=== PATIENT | female | born 1975 | race Caucasian/White ===

== ENCOUNTER 2024-05-09 17:09 | Emergency (ER) | payer OTHER, SELFPAY ==
[2024-05-09 17:26] VITALS: BP 140/88; PULSE 85; TEMP 36.9; O2SAT 97; BMI 37.8
--- NOTE | 2024-05-09 17:31 | CT_ITS ---
[address] [address] Patient Name: DIPAK DIAZ MRN: [id number] date: 1975 Sex: F Assigned Patient Location: ER Current Patient Location: Accession/Order Number: [id number] Exam Date: 05/09/2024 17:40 Report Date: 05/09/2024 18:30 At the request of: ROHINI MINOR Procedure: CT abdomen pelvis wo con EXAM: CT abdomen pelvis wo con HISTORY: Flank pain COMPARISON: None. TECHNIQUE: Axial CT imaging was performed through the abdomen and pelvis without intravenous contrast. Multiplanar reformats were performed. Dose reduction techniques were achieved by using automated exposure control and/or adjustment of mA and/or kV according to patient size and/or use of iterative reconstruction technique. FINDINGS: Lung bases: Lung bases are clear. No pleural effusion. GI upper: Small hiatal hernia. Liver: Normal size and contour. Gallbladder: No significant abnormality. No cholelithiasis. Biliary system: No intra or extrahepatic biliary ductal dilatation. Spleen: Normal size. Pancreas: Unremarkable. Adrenal glands: Normal adrenal glands. Kidneys/ureters: Normal contours. No hydronephrosis. There is a 0.3 cm stone in the distal left ureter. Vessels: No aneurysm. Lymph Nodes: No lymphadenopathy. Small bowel: No wall thickening or dilatation. Colon: No wall thickening or dilatation. Sigmoid diverticulosis without evidence of acute diverticulitis. Appendix: No findings of appendicitis. Peritoneal cavity: No free fluid or pneumoperitoneum. Lower : Unremarkable. Bones: No acute bony abnormality. Soft tissues: No acute finding. Additional findings: None. CT/CT abdomen pelvis wo con IMPRESSION: a 0.3 cm nonobstructing stone in the distal left ureter. Electronically authenticated by: DAR TAMAYO Date: 05/09/2024 18:30
[2024-05-09 17:47] LABS: Bilirubin Urine NEGATIVE (NEGATIVE); Blood Urine LARGE (NEGATIVE); Clarity Urine CLEAR (CLEAR); Color Urine LT. YELLOW (YELLOW); Glucose Urine UA NEGATIVE (NEGATIVE); Ketones Urine TRACE mg/dL (NEGATIVE); Leukocyte Esterase Urine MODERATE (NEGATIVE); Nitrite Urine NEGATIVE (NEGATIVE); Protein Urine TRACE mg/dL (NEG/TRACE); Specific Gravity Urine >=1.030 (1.005-1.025); Urobilinogen Urine 0.2 EU/dL (0.2-1.0); pH Urine 5.5 (5.0-9.0)
[2024-05-09 17:48] LABS: HCG Qualitative Urine* NEGATIVE (NEGATIVE); Internal Control Within Normal Limits
[2024-05-09 17:49] LABS: Urine Microscopic Indicated YES
[2024-05-09 17:53] LABS: Bacteria Urine MODERATE #/HPF (NONE SEEN); Cast Seen? SEEN #/LPF (NONE SEEN); Crystals Seen? None Seen #/HPF (None Seen); Hyaline Casts Urine FEW; Mucus Urine SMALL (NONE SEEN); RBC Urine 50-75 #/HPF (0-2); Squamous Epithelial Cell Urine FEW #/LPF (NONE/RARE); Urine Culture Indicated YES
[2024-05-09 18:04] LABS: Basophils Absolute Auto 0.1 10^3/uL (0.0-0.1); Basophils Percent Auto 0.6 % (0.2-2.0); Eosinophils Absolute Auto 0.3 10^3/uL (0.0-0.7); Eosinophils Percent Auto 3.6 % (0.9-7.0); Hematocrit 45.4 % (36.0-48.0); Hemoglobin 14.7 g/dL (12.0-16.0); Immature Granulocytes Abs Auto 0.03 10^3/uL (0.00-0.03); Immature Granulocytes Pct Auto 0.3 % (0.0-0.5); Lymphocytes Absolute Auto 2.1 10^3/uL (1.2-3.8); Lymphocytes Percent Auto 23.1 % (20.5-60.0); Mean Corpuscular HGB Conc 32.4 g/dL (29.9-35.2); Mean Corpuscular Hemoglobin 28.1 pg (26.7-34.0); Mean Corpuscular Volume 86.6 fL (81.0-99.0); Mean Platelet Volume 9.8 fL (9.5-13.5); Monocytes Absolute Auto 0.7 10^3/uL (0.3-0.8); Monocytes Percent Auto 7.5 % (1.7-12.0); Neutrophils Percent Auto 64.9 % (43.0-75.0); Platelet Count 294 10^3/uL (150-450); Red Blood Count 5.24 10^6/uL (4.20-5.40); Red Cell Distribution Width 13.7 % (11.0-15.0); White Blood Count 9.3 10^3/uL (4.0-11.0)
--- NOTE | 2024-05-09 18:12 | ED.FEMALEGU1 ---
HPI - Female Genitourinary General Chief complaint: Urogenital-Female Stated complaint: UTI Time Seen by Provider: 05/09/24 17:14 Source: patient Mode of arrival: walk-in Limitations: no limitations History of Present Illness HPI Narrative: Patient is a 49-year-old female who presents to the emergency department for flank pain and suprapubic discomfort with urinary symptoms for the last several days. She states over the weekend she developed intermittent left flank pain which has subsided completely at this time. She states this morning she noticed suprapubic discomfort and burning with urination. She has had urinary tract infections in the past but has never had flank pain, no history of kidney stones or kidney issues. She denies fevers or vomiting. Pain is well-controlled at this time. No medications prior to arrival. Related Data Home Medications ?Medication ?Instructions ?Recorded ?Confirmed letrozole 2.5 mg tablet 2.5 mg PO DAILY 05/09/24 05/09/24 levothyroxine 50 mcg tablet 50 mcg PO DAILY 05/09/24 05/09/24 Previous Rx's ?Medication ?Instructions ?Recorded ciprofloxacin HCl 500 mg tablet 500 mg PO Q12H #14 tabs 05/09/24 ketorolac 10 mg tablet 10 mg PO TID PRN pain #10 tabs 05/09/24 ondansetron 4 mg disintegrating 4 mg PO Q6H PRN nausea and 05/09/24 tablet vomiting #12 tabs oxycodone-acetaminophen 5 mg-325 1 tab PO Q6H PRN pain 3 days #12 05/09/24 mg tablet (Percocet) tabs phenazopyridine 200 mg tablet 200 mg PO Q8H 2 days #6 tabs 05/09/24 (Pyridium) tamsulosin 0.4 mg capsule (Flomax) 0.4 mg PO DAILY #7 caps 05/09/24 Allergies Allergy/AdvReac Type Severity Reaction Status Date / Time No Known Drug Allergies Allergy Verified 05/09/24 17:25 Review of Systems ROS Constitutional Denies: fever or chills Ears, nose, mouth, and throat Denies: throat pain or nasal congestion Respiratory Denies: shortness of breath Gastrointestinal Reports: abdominal pain; Denies: nausea or vomiting Genitourinary Reports: painful urination, urinary frequency and pelvic pain Musculoskeletal Reports: back pain; Denies: neck pain Integumentary/Breast Denies: rash Neurological Denies: headache Hematologic/Lymphatic Denies: easy bruising or easy bleeding Exam Narrative Exam Narrative: Gen.: Awake, alert, in no distress Head: Normocephalic, atraumatic ENT: Moist mucous membranes Respiratory: No respiratory distress Gastrointestinal: Abdomen is soft, nondistended and nontender to palpation Extremities: Moves extremities equally Psych: Normal mood and affect Neuro: No focal neuro deficit Skin: Warm, dry, intact Constitutional Vital Signs, click to edit/add: Last Vital Signs Temp 98.4 F 05/09/24 17:26 Pulse 85 05/09/24 17:26 Resp 18 05/09/24 17:26 BP 140/88 05/09/24 17:26 Pulse Ox 97 05/09/24 17:26 O2 Del Method Room Air 05/09/24 17:26 Course Vital Signs Vital signs: Vital Signs Temperature 98.4 F 05/09/24 17:26 Pulse Rate 85 05/09/24 17:26 Respiratory Rate 18 05/09/24 17:26 Blood Pressure 140/88 05/09/24 17:26 Pulse Oximetry 97 05/09/24 17:26 Oxygen Delivery Method Room Air 05/09/24 17:26 Temperature 98.4 F 05/09/24 17:26 Pulse Rate 85 05/09/24 17:26 Respiratory Rate 18 05/09/24 17:26 Blood Pressure 140/88 05/09/24 17:26 Pulse Oximetry 97 05/09/24 17:26 Oxygen Delivery Method Room Air 05/09/24 17:26 MDM - Female Genitourinary MDM Narrative Medical decision making narrative: Patient declined pain medication while in the ER, she is hemodynamically stable with normal vital signs. Labs are within normal limits although she does have a urinary tract infection, CT shows a 3 mm stone in the left distal ureter. Patient started on Percocet, Toradol, Cipro, Pyridium, Zofran, Flomax for UTI and kidney stone. Urology follow-up given for home. Continue fluids, return to the ER if symptoms change or worsen. SUPERVISED APC VISIT, PHYSICIAN ATTESTATION: Based on the medical record the care appears appropriate. ? Medical Records Attestation: I reviewed the patient's medical records. Lab Data Attestation: I reviewed the patient's lab results. Labs: Lab Results 05/09/24 05/09/24 Range/Units 17:34 17:57 WBC 9.3 (4.0-11.0) 10^3/uL RBC 5.24 (4.20-5.40) 10^6/uL Hgb 14.7 (12.0-16.0) g/dL Hct 45.4 (36.0-48.0) % MCV 86.6 (81.0-99.0) fL MCH 28.1 (26.7-34.0) pg MCHC 32.4 (29.9-35.2) g/dL RDW 13.7 (11.0-15.0) % Plt Count 294 (150-450) 10^3/uL MPV 9.8 (9.5-13.5) fL Neut % (Auto) 64.9 (43.0-75.0) % Lymph % (Auto) 23.1 (20.5-60.0) % Phillips % (Auto) 7.5 (1.7-12.0) % Eos % (Auto) 3.6 (0.9-7.0) % Baso % (Auto) 0.6 (0.2-2.0) % Neut # (Auto) 6.0 (1.4-6.5) 10^3/uL Lymph # (Auto) 2.1 (1.2-3.8) 10^3/uL Phillips # (Auto) 0.7 (0.3-0.8) 10^3/uL Eos # (Auto) 0.3 (0.0-0.7) 10^3/uL Baso # (Auto) 0.1 (0.0-0.1) 10^3/uL Abs Immat Gran (auto) 0.03 (0.00-0.03) 10^3/uL Imm/Tot Granulo (auto) 0.3 (0.0-0.5) % Sodium 142 (136-145) mmol/L Potassium 3.8 (3.5-5.1) mmol/L Chloride 104 (98-107) mmol/L Carbon Dioxide 29.5 (21.0-32.0) mmol/L Anion Gap 12.3 BUN 16.0 (7.0-18.0) mg/dL Creatinine 0.95 (0.55-1.02) mg/dL Est GFR ( Amer) >60 (>=60) Est GFR (Non-Af Amer) >60 (>=60) BUN/Creatinine Ratio 16.8 Glucose 85 (74-106) mg/dL Lactate 0.9 (0.4-2.0) mmol/L Calcium 9.5 (8.5-10.1) mg/dL Total Bilirubin 0.3 (0.2-1.0) mg/dL AST 9 L (15-37) U/L ALT 20 (14-59) U/L Alkaline Phosphatase 107 (46-116) U/L Total Protein 7.8 (6.4-8.2) g/dL Albumin 3.9 (3.4-5.0) g/dL Globulin 3.9 g/dL Albumin/Globulin Ratio 1.0 Urine Color Lt. yellow (YELLOW) Urine Clarity Clear (CLEAR) Urine pH 5.5 (5.0-9.0) Ur Specific [place] >=1.030 A (1.005-1.025) Urine Protein Trace (NEG/TRACE) mg/dL Urine Glucose (UA) Negative (NEGATIVE) mg/dL Urine Ketones Trace A (NEGATIVE) mg/dL Urine Occult Blood Large A (NEGATIVE) Urine Nitrite Negative (NEGATIVE) Urine Bilirubin Negative (NEGATIVE) Urine Urobilinogen 0.2 (0.2-1.0) EU/dL Ur Leukocyte Esterase Moderate A (NEGATIVE) Urine RBC 50-75 A (0-2) #/HPF Urine WBC 10-20 A (NONE SEEN) #/HPF Ur Squamous Epith Cells Few A (NONE/RARE) #/LPF Urine Crystals None seen (None Seen) #/HPF Urine Bacteria Moderate A (NONE SEEN) #/HPF Urine Casts Seen A (NONE SEEN) #/LPF Hyaline Casts Few Urine Mucus Small A (NONE SEEN) Ur Culture Indicated? Yes Urine HCG, Qual Negative (NEGATIVE) Imaging Data CT scan - abdomen: Attestation: I have reviewed the pertinent imaging results. Radiologist's impression: ITS Impressions Abdomen/Pelvis CT 05/09/24 17:31 IMPRESSION: a 0.3 cm nonobstructing stone in the distal left ureter. Electronically authenticated by: DAR TAMAYO Date: 05/09/2024 18:30 Discharge Plan Discharge Stand Alone Forms: Work/School Release, Portal Instructions Chief Complaint: Urogenital-Female Clinical Impression: Left ureteral stone, UTI (urinary tract infection) Patient Disposition: Home, Self-Care Time of Disposition Decision: 18:46 Condition: Good Prescriptions / Home Meds: New ciprofloxacin HCl 500 mg tablet 500 mg PO Q12H Qty: 14 0RF ketorolac 10 mg tablet 10 mg PO TID PRN (Reason: pain) Qty: 10 0RF oxycodone-acetaminophen [Percocet] 5-325 mg tablet 1 tab PO Q6H PRN (Reason: pain) 3 Days Qty: 12 0RF Rx Instructions: DX: N20.0 tamsulosin [Flomax] 0.4 mg capsule 0.4 mg PO DAILY Qty: 7 0RF ondansetron 4 mg tablet,disintegrating 4 mg PO Q6H PRN (Reason: nausea and vomiting) Qty: 12 0RF phenazopyridine [Pyridium] 200 mg tablet 200 mg PO Q8H 2 Days Qty: 6 0RF No Action levothyroxine 50 mcg tablet 50 mcg PO DAILY letrozole 2.5 mg tablet 2.5 mg PO DAILY Print Language: Frisian Instructions: Urinary Tract Infection in Women (ED), Ureteral Stones (ED) Referrals: Mitchell Joshi MD [Physician] - As needed JHON RÍOS [Primary Care Provider] - 1 week Discharge Date/Time: 05/09/24 18:53
[2024-05-09 18:23] LABS: Alanine Aminotransferase 20 U/L (14-59); Albumin Level 3.9 g/dL (3.4-5.0); Alkaline Phosphatase 107 U/L (46-116); Anion Gap 12.3; Aspartate Amino Transferase 9 U/L (15-37); BUN Creatinine Ratio 16.8; Bilirubin Total 0.3 mg/dL (0.2-1.0); Calcium 9.5 mg/dL (8.5-10.1); Carbon Dioxide 29.5 mmol/L (21.0-32.0); Chloride 104 mmol/L (98-107); Estimated GFR (African America >60 (>=60); Estimated GFR (Non-African Ame >60 (>=60); Globulin 3.9 g/dL; Glucose 85 mg/dL (74-106); Potassium 3.8 mmol/L (3.5-5.1); Sodium 142 mmol/L (136-145); Total Protein 7.8 g/dL (6.4-8.2)
[2024-05-09 18:28] LABS: Lactate/Lactic Acid 0.9 mmol/L (0.4-2.0)
== END 2024-05-09 18:53 | disposition home or self-care (01) ==
PROVIDERS: Physician Assistant; Emergency Provider Emergency Medicine; PCP Family Medicine
DX: N39.0 Urinary tract infection, site not specified (principal); N20.1 Calculus of ureter; Z87.440 Personal history of urinary (tract) infections
CPT/HCPCS: 36415; 74176; 80053; 81001; 83605; 84703; 85025; 87086; 99284

== ENCOUNTER 2025-04-16 16:57 | Emergency (ER) | payer OTHER, SELFPAY ==
--- OUTSIDE RECORDS SUMMARY | 2025-04-09 08:00 | XMS_ITS | Encounter Summary ---
Author Organization [facility] Address [address] [place] [address] Care Team Providers Care Project Geologist Name Role Phone Marielena Hester MD Primary Care Provider [phone] Kell Brown SENIOR EXECUTIVE COMPENSATION ANALYST Unavailable [phone] Encounter Details Date Type Department Care Team (Late st Contact Info) Description 04/09/2025 8:00 AM EDT Ancillary Procedure [facility] [address] [place] [id number] Social History Tobacco Use Types Packs/Day Years Used Date Smoking Tobacco: Never Smokeless Tobacco: Never Alcohol Use Standard Drinks/Week Comments Never 0 (1 standard drink = 0.6 oz pure alcohol) caffeine yes type: soda,chocolate B1300 Health Literacy Answer Date Recor ded How often do you need to hav e someone help you when you read instructions, pamphlets, or other written material from your doctor or pharmacy? Never 03/11/2025 Humiliation, Afraid, Rape, and Kick questionnair e Answer Date Recorded Within the last year, have y ou been afraid of your partner or ex-partner? No 03/11/2025 Within the last year, have y ou been humiliated or emotionally abused in other ways by your partner or ex-partner? No Within the last year, have y ou been kicked, hit, slapped, or otherwise physically hurt by your partner or ex-partner? No 03/11/2025 Within the last year, have y ou been raped or forced to have any kind of sexual activity by your partner or ex-partner? No 03/11/2025 Social Connection and Isolation Panel [NHANES] A nswer Date Recorded In a typical week, how many times do you talk on the phone with family, friends, or neighbors? Patient declined 03/11/2025 How often do you get togethe r with friends or relatives? Patient declined 03/11/2025 How often do you attend faith or buddhism serv ices? Patient declined 03/11/2025 Do you belong to any clubs o r organizations such as faith groups, unions, fraternal or athletic groups, or school groups? Patient declined 03/11/2025 How often do you attend meet ings of the clubs or organizations you belong to? Patient declined 03/11/2025 Are you , , di vorced, , never , or living with a partner? 03/11/2025 AUDIT-C Answer Date Recorded Q1: How often do you have a drink containing alc ohol? Patient declined 03/11/2025 Q2: How many drinks containi ng alcohol do you have on a typical day when you are drinking? Patient declined 03/11/2025 Q3: How often do you have si x or more drinks on one occasion? Patient declined 03/11/2025 Overall Financial Resource Strain (CARDIA) Answe r Date Recorded How hard is it for you to pa y for the very basics like food, housing, medical care, and heating? Not hard at all 03/11/2025 PHQ-2 Answer Date Recorded Patient Health Questionnaire-2 Score 0 03/12/2025 [facility] - Occupational Stress Questionnaire Answer Date Recorded Do you feel stress - tense, restless, nervous, or anxious, or unable to sleep at night because your mind is troubled all the time - these days? Not at all 03/11/2025 Exercise Vital Sign Answer Date Recorde d On average, how many days pe r week do you engage in moderate to strenuous exercise (like a brisk walk)? Patient declined On average, how many minutes do you engage in exercise at this level? Patient declined 03/11/2025 Hunger Vital Sign Answer Date Recorded Within the past 12 months, y ou worried that your food would run out before you got the money to buy more. Never true 03/11/20 25 Within the past 12 months, t he food you bought just didn't last and you didn't have money to get more. Never true 03/11/2025 PRAPARE - Transportation Answer Date Re corded In the past 12 months, has l ack of transportation kept you from medical appointments or from getting medications? No 02/18 In the past 12 months, has l ack of transportation kept you from meetings, work, or from getting things needed for daily living? No 03/11/2025 Housing Stability Vital Sign Answer Marquez e Recorded In the last 12 months, was t here a time when you were not able to pay the mortgage or rent on time? No 09/06/2023 In the last 12 months, how many places have you lived? 1 09/06/2023 In the last 12 months, was t here a time when you did not have a steady place to sleep or slept in a detention (including now)? No 09/06/2023 Housing Stability Vital Sign Answer Marquez e Recorded In the last 12 months, was t here a time when you were not able to pay the mortgage or rent on time? No 03/11/2025 Number of Times Moved in the Last Year Not on fi le 03/11/2025 At any time in the past 12 m [facility], were you homeless or living in a detention (including now)? No 03/11/2025 Comments No Sex and Gender Information Value Date Recorded Sex Assigned at Not on file Legal Sex Female 6:37 PM EDT Gender Identity Not on file Sexual Orientation Not on file documented as of this encounter Plan of Treatment Upcoming Encounters Date Type Department Care Team (Late st Contact Info) Description 04/08/2026 10:00 AM EDT Office Visit [facility] [address] [facility] [place] [address] Jr. Tao Farmer, DO [address] [place] [address] documented as of this encounter Procedures Procedure Name Priority Date/Time Associated Diagnosis Comments XR KNEE 1-2 VIEWS RIGHT Routine 04/08/2025 9:17 PM EDT Acute pain of right knee documented in this encounter Results * XR knee 1 or 2 views right (04/08/2025 9:17 PM EDT) Anatomical Region Laterality Modality Lower Extremities, Knee Right [facility] Narrative 04/09/2025 11:24 AM EDT Imaging Result: AP and lateral of right knee showed surgical position and alignment of prosthetic components without evidence of loosening or wear to the femoral, tibial, or patellar components. The alignment appeared to be anatomic. There was no evidence of accelerated or asymmetric wear to the patellar button or tibial tray. There was no evidence of fracture and/or dislocation. Impression: Unremarkable right total knee arthroplasty. [facility] Tao Farmer DO IMG XR PROCEDURES Final Result documented in this encounter Visit Diagnoses Not on filedocumented in this encounter Care Teams Project Geologist Relationship Specialty Start Date End Date Marielena Hester MD [address] [facility] [address] [place] [address] PCP - General Family Medicine 01/28/23 Kell Brown NP [address] [place] [address] PCP - [facility] 09/19/24 documented as of this encounter
--- OUTSIDE RECORDS SUMMARY | 2025-04-09 10:45 | XMS_ITS | Encounter Summary ---
Author Organization [facility] Address [address] [facility] [place] [address] Care Team Providers Care Turret Lathe Operator Name Role Phone Marielena Hester MD Primary Care Provider [phone] Kell Brown WELDER [employer] Unavailable [phone] Reason for Visit * Reason Comments Follow-up Encounter Details Date Type Department Care Team (Late st Contact Info) Description 04/09/2025 10:45 AM EDT Office Visit [facility] [address] [place] [phone] Jr. Tao Farmer, DO [address] [id number] Status post right knee replacement (Primary Dx); Acute pain of right knee Social History Tobacco Use Types Packs/Day Years [...] declined 03/11/2025 How often do you attend sikhism or mandaeism serv ices? Patient declined 03/11/2025 Do you belong to any clubs o r organizations such as sikhism groups, unions, fraternal or athletic groups, or [...] Recorded Patient Health Questionnaire-2 Score 0 03/12/2025 [facility] [place] [facility] Occupat ional [facility] - Occupational Stress Questionnaire Answer Date Recorded [...] place to sleep or slept in a snf (including now)? No 09/06/2023 Housing Stability Vital Sign Answer Marquez e Recorded In the last 12 months, was t here a time when you were not able to pay the mortgage or rent on time? No 03/11/2025 Number of Times Moved in the Last Year Not on fi le 03/11/2025 At any time in the past 12 m [facility], were you homeless or living in a snf (including now)? No 03/11/2025 Comments No Sex and Gender Information Value Date Recorded Sex Assigned at Not on file Legal Sex Female 6:37 PM EDT Gender Identity Not on file Sexual Orientation Not on file documented as of this encounter Progress Notes * Jr. Tao Farmer, DO - 04/09/2025 10:45 AM EDT Images from the original note were not included. HISTORY OF PRESENT ILLNESS: EST PT Dolores Bentley is an 49 y.o. @ female. EST PT HERE FOR YEARLY RECHECK RT TKA 09/29/23 (~1YR 6MO) - XRAY RT KNEE TODAY EPIC 04/09/25 XRAY RT KNEE CHANGE 11/09/23 PT EDMAR GRIGGS P/O TRE GOMEZ DOING WELL- SHE DOES NOTES SOME TIGHTNESS- GOOD ROM/STRENGTH- NO PAIN MEDS - WALKING UNASSISTED- PTIS VERY PLEASED. SOME DIFFICULTY WITH STAIRS. ALLERGIES: Allergies Allergen Reactions Amoxicillin Other HOME MEDICATIONS: Current Outpatient Medications Medication Instructions calcium 200 MG tablet Calcium cholecalciferol (Vitamin D-3) 50 MCG (1999) capsule Vitamin D letrozole (Femara) 2.5 MG chemo tablet Daily levothyroxine (SYNTHROID, LEVOXYL) 50 mcg, Oral, Daily before breakfast PHYSICAL EXAM: Knee Musculoskeletal Exam Gait Gait is normal. Inspection Leg length disparity: no discrepancy Right Erythema: none Effusion: none Edema: none Ecchymosis: none Deformity: none Alignment: normal Previous incision: anterolateral Incision: well-healed Palpation Right Right knee palpation is unremarkable. Increased warmth: none Masses: none Tenderness: present Patella: mild Range of Motion Right Right knee range of motion is normal and full. Active extension: 0 Passive extension: 0 Active flexion: 120 Passive flexion: 120 Strength Right Right knee strength is normal. Extension: 5/5. Flexion: 5/5. Instability Right Instability signs: none - stable Varus stress grade: normal Valgus stress grade: normal Neurovascular Right Right knee neurovascular exam is normal. Pulses - PT: normal Posterior tibial: 2+ Capillary refill: warm and well-perfused Special Signs Right Right knee special signs are normal. Patellar apprehension: none General Constitutional: appears stated age Labored breathing: no Psychiatric: normal mood and affect Neurological: alert Skin: intact Lymphadenopathy: none Vitals: There is no height or weight on file to calculate BMI. Tobacco Use: Low Risk (03/12/2025) Patient History Smoking Tobacco Use: Never Smokeless Tobacco Use: Never Passive Exposure: Not on file Alcohol Use: Patient Declined (03/11/2025) AUDIT-C Frequency of Alcohol Consumption: Patient declined Average Number of Drinks: Patient declined Frequency of Binge Drinking: Patient declined IMAGING: XR knee 1 or 2 views right Imaging Result: AP and lateral of right knee showed surgical position and alignment of prosthetic components without evidence of loosening or wear to the femoral, tibial, or patellar components. The alignment appeared to be anatomic. There was no evidence of accelerated or asymmetric wear to the patellar button ortibial tray. There was no evidence of fracture and/or dislocation. Impression: Unremarkable right total knee arthroplasty. Procedures Orders Placed This Encounter Procedures XR knee 1 or 2 views right Is the patient ?: No Reason for exam:: PAIN ASSESSMENT: ICD-10-CM 1. Status post right knee replacement Z96.651 2. Acute pain of right knee M25.561 XR knee 1 or 2 views right PLAN: Questions answered in laymen terms at the bedside. The diagnosis, home exercise plan and any ongoing restrictions/ recommendations reviewed. If unable to be reached in office, I recommend evaluation at nearest Emergency Room if any symptoms worsened or new symptoms develop for requiring urgent evaluation. documented in this encounter Plan of Treatment Upcoming Encounters Date Type Department Care Team (Late st Contact Info) Description 04/08/2026 10:00 AM EDT Office Visit [facility] [address] [place] [phone] Jr. Tao Farmer DO [address] [facility] [address] [place] [address] documented as of this encounter Procedures Procedure Name Priority Date/Time Associated Diagnosis Comments XR KNEE 1-2 VIEWS RIGHT Routine 04/08/2025 9:17 PM EDT Acute pain of right knee documented in this encounter Results * XR knee 1 or 2 views right (04/08/2025 9:17 PM EDT) Anatomical Region Laterality Modality Lower Extremities, Knee Right Radiogra [facility] Imaging Narrative 04/09/2025 11:24 AM EDT Imaging [...] dislocation. Impression: Unremarkable right total knee arthroplasty. us Jr. Tao C Stepanic DO IMG XR PROCEDURES Final Result documented in this encounter Visit Diagnoses Diagnosis Status post right knee replacement- Primary Acute pain of right knee documented in this encounter Care Teams Turret Lathe Operator Relationship Specialty Start Date End Date Marielena Hester MD [address] [facility] [address] [place] [address] PCP - General Family Medicine 01/28/23 Kell Brown NP [address] [place] [address] [facility] documented as of this encounter
[2025-04-16 17:03] VITALS: BP 133/89; PULSE 82; TEMP 37.3; O2SAT 97; BMI 37.8
--- NOTE | 2025-04-16 17:12 | XR_ITS ---
[place] [id number] Patient Name: DIPAK DIAZ MRN: [id number] date: 1975 Sex: F Assigned Patient Location: ER Current Patient Location: ER Accession/Order Number: [id number] Exam Date: 04/16/2025 17:45 Report Date: 04/16/2025 17:46 At the request of: SINTIA GREEN MD Procedure: XR shoulder LT min 2V LEFT SHOULDER - - 3 views CLINICAL HISTORY: Atraumatic pain, at AC joint COMPARISON: None FINDINGS: No fractures or dislocation. Teim-lj-[id number] degenerative changes AC joint with subtle subchondral cystic change. Mild degenerative changes of the glenohumeral joint. Left lung apex is clear. IMPRESSION: No acute bony process. Ozbh-as-jepiwgiu degenerative changes. Impression dictated by: Bernardo Barraza M.D. 04/16/2025 5:46 PM Dictation Location: [place] [address] Electronically authenticated by: [id number] Y Date: 04/16/2025 17:46
--- NOTE | 2025-04-16 17:15 | ED.GENADUL1 ---
HPI HPI - General Adult General Chief complaint: Extremity Problem, Nontraumatic Stated complaint: UPPER PAIN Time Seen by Provider: 04/16/25 17:02 Source: patient Mode of arrival: walk-in Limitations: no limitations History of Present Illness HPI narrative: 49-year-old female presents for left shoulder pain. She woke up this way 2 days ago. She does not recall any injury. She points to the left AC joint to indicate the area of pain. The rest of the shoulder does not seem to be hurting. She is right-handed and never had issues with that shoulder. Related Data Home Medications ?Medication ?Instructions ?Recorded ?Confirmed letrozole 2.5 mg tablet 2.5 mg PO DAILY 05/09/24 04/16/25 levothyroxine 50 mcg tablet 50 mcg PO DAILY 05/09/24 04/16/25 Previous Rx's ?Medication ?Instructions ?Recorded acetaminophen 300 mg-codeine 30 mg 1 tab PO Q6H PRN pain 5 days #20 04/16/25 tablet tabs ibuprofen 800 mg tablet 800 mg PO Q8H PRN pain #20 tabs 04/16/25 Allergies Allergy/AdvReac Type Severity Reaction Status Date / Time No Known Drug Allergies Allergy Verified 05/09/24 17:25 Opioid HPI Opioid Management Most Recent Opioid Data: Last Pain Scale 8 Today, 17:16 Review of Systems ROS Narrative A ten point review of systems is negative except as noted above. PFSH PFSH Social History Little interest or pleasure in doing things: not at all Feeling down, depressed, or hopeless: not at all Exam Narrative Exam Narrative: Nurses note and vital signs reviewed and patient is not hypoxic. General: The patient appears well and in no apparent distress. Skin: Warm, dry, no pallor noted. There is no rash noted. Head: Normocephalic, atraumatic Eye: Normal conjunctiva, no drainage Ears, Nose, Mouth, and Throat: oral mucosa is moist. Nares patent. Cardiovascular: Regular Rate and Rhythm Respiratory: Patient is in no distress, no accessory muscle use Back: non-tender GI: Soft and nontender Musculoskeletal: The left shoulder is examined. There is no bruise rash or abrasion. She is reluctant to move her shoulder but is able to do so. She has point tenderness at the left AC joint. No swelling is noted there. She does not seem to have tenderness elsewhere. Radial pulse 2+ and fingers have full range of motion. Neurological: A&O, normal speech Psychiatric: Cooperative Constitutional Vital Signs, click to edit/add: Last Vital Signs Temp 99.2 F 04/16/25 17:03 Pulse 82 04/16/25 17:03 Resp 16 04/16/25 17:03 BP 133/89 04/16/25 17:03 Pulse Ox 97 04/16/25 17:03 O2 Del Method Room Air 04/16/25 17:03 Course Vital Signs Vital signs: Vital Signs Temperature 99.2 F 04/16/25 17:03 Pulse Rate 82 04/16/25 17:03 Respiratory Rate 16 04/16/25 17:03 Blood Pressure 133/89 04/16/25 17:03 Pulse Oximetry 97 04/16/25 17:03 Oxygen Delivery Method Room Air 04/16/25 17:03 Temperature 99.2 F 04/16/25 17:03 Pulse Rate 82 04/16/25 17:03 Respiratory Rate 16 04/16/25 17:03 Blood Pressure 133/89 04/16/25 17:03 Pulse Oximetry 97 04/16/25 17:03 Oxygen Delivery Method Room Air 04/16/25 17:03 Medical Decision Making MDM Narrative Medical decision making narrative: X-rays per radiologist show degenerative changes at the left AC joint. She is placed in a sling. Application checked by me and found to be appropriate, she is neurovascular intact. She was advised not to wear the sling for more than 3 days. She will follow-up with her established orthopedist and was prescribed Motrin and Tylenol 3. Treatment diagnosis and follow-up were discussed with the patient. Differential Diagnosis Differential Diagnosis: Arthritis, bursitis Imaging Data Shoulder x-ray: Radiologist's impression: Procedure: XR shoulder LT min 2V LEFT SHOULDER - - 3 views CLINICAL HISTORY: Atraumatic pain, at AC joint COMPARISON: None FINDINGS: No fractures or dislocation. Yjnd-yd-eiluzvvm degenerative changes AC joint with subtle subchondral cystic change. Mild degenerative changes of the glenohumeral joint. Left lung apex is clear. IMPRESSION: No acute bony process. Shyg-wz-bwauiwsd degenerative changes. Impression dictated by: Bernardo Barraza M.D. 04/16/2025 5:46 PM Discharge Plan Discharge Chief Complaint: Extremity Problem, Nontraumatic Clinical Impression: Left shoulder pain Patient Disposition: Home, Self-Care Time of Disposition Decision: 17:56 Condition: Good Mode of Transportation: Private Vehicle Prescriptions / Home Meds: New ibuprofen 800 mg tablet 800 mg PO Q8H PRN (Reason: pain) Qty: 20 0RF acetaminophen-codeine 300-30 mg tablet 1 tab PO Q6H PRN (Reason: pain) 5 Days Qty: 20 0RF No Action levothyroxine 50 mcg tablet 50 mcg PO DAILY letrozole 2.5 mg tablet 2.5 mg PO DAILY Print Language: Citizen Of [place] Instructions: Shoulder Pain (ED) Additional Instructions: Follow-up with your established orthopedist. Referrals: [facility] [Primary Care Provider, Family Practice] - 1 week
--- OUTSIDE RECORDS SUMMARY | 2025-04-16 17:15 | XMS_ITS | Encounter Summary ---
Author Organization [facility] Address [address] [place] [address] Care Team Providers Care Soakers Supervisor Name Role Phone Marielena Hester MD Primary Care Provider [phone] Gómez Abebe AERIAL GUNNER Unavailable [phone] Kell Brown AERIAL GUNNER Unavailable [phone] Encounter Details Date Type Department Care Team (Late st Contact Info) Description 05/15/2024 Abstract [facility] 112 [facility] 110 [place] [address] Marielena Hester MD 112 [facility] 110 [place], [place] [id number] Social History Tobacco Use Types Packs/Day Years Used Date Smoking Tobacco: Never Smokeless Tobacco: Never Alcohol Use Standard Drinks/Week Comments Never 0 (1 standard drink = 0.6 oz pure alcohol) caffeine yes type: soda,chocolate Humiliation, Afraid, Rape, and Kick questionnair e Answer Date Recorded Within the last year, have y ou been afraid of your partner or ex-partner? No 09/06/2023 Within the last year, have y ou been humiliated or emotionally abused in other ways by your partner or ex-partner? No Within the last year, have y ou been kicked, hit, slapped, or otherwise physically hurt by your partner or ex-partner? No 09/06/2023 Within the last year, have y ou been raped or forced to have any kind of sexual activity by your partner or ex-partner? No 09/06/2023 Social Connection and Isolat ion Panel [NHANES] Answer Date Recorded In a typical week, how many times do you talk on the phone with family, friends, or neighbors? More than three times a week 09/06/2023 How often do you get togethe r with friends or relatives? More than three times a week 09/06/2023 How often do you attend chur or jainism services? Patient declined 09/06/2023 Do you belong to any clubs o r organizations such as sikh groups, unions, fraternal or athletic groups, or school groups? Patient declined 09/06/2023 How often do you attend meet ings of the clubs or organizations you belong to? Patient declined 09/06/2023 Are you , , di vorced, , never , or living with a partner? 09/06/2023 AUDIT-C Answer Date Recorded Q1: How often do you have a drink containing alcohol? Never 09/06/2023 Q2: How many drinks containi ng alcohol do you have on a typical day when you are drinking? Patient does not drink Q3: How often do you have si x or more drinks on one occasion? Never 09/06/2023 Overall Financial Resource Strain (CARDIA) Answe r Date Recorded How hard is it for you to pa y for the very basics like food, housing, medical care, and heating? Not hard at all 09/06/2023 [facility] - Occupational Stress Questionnaire Answer Date Recorded Do you feel stress - tense, restless, nervous, or anxious, or unable to sleep at night because your mind is troubled all the time - these days? Patient declined 09/06/2023 Exercise Vital Sign Answer Date Recorde d On average, how many days pe r week do you engage in moderate to strenuous exercise (like a brisk walk)? 5 days 09/06/2023 On average, how many minutes do you engage in exercise at this level? 20 min 09/06/2023 Hunger Vital Sign Answer Date Recorded Within the past 12 months, y ou worried that your food would run out before you got the money to buy more. Never true 09/06/20 23 Within the past 12 months, t he food you bought just didn't last and you didn't have money to get more. Never true 09/06/2023 PRAPARE - Transportation Answer Date Re corded In the past 12 months, has l ack of transportation kept you from medical appointments or from getting medications? No 08/19 In the past 12 months, has l ack of transportation kept you from meetings, work, or from getting things needed for daily living? No 09/06/2023 Housing Stability Vital Sign Answer [...] place to sleep or slept in a intermediate (including now)? No 09/06/2023 Comments No Sex and Gender Information Value Date Recorded Sex Assigned at Not on file Legal Sex Female 6:37 PM EDT Gender Identity Not on file Sexual Orientation Not on file documented as of this encounter Plan of Treatment Upcoming Encounters Date Type Department Care Team (Late st Contact Info) Description 04/08/2026 10:00 AM EDT Office Visit [facility] [address] [place] [address] Jr. Tao Farmer DO [address] [place] [address] documented as of this encounter Visit Diagnoses Not on filedocumented in this encounter Care Teams Soakers Supervisor Relationship Specialty Start Date End Date Marielena Hester MD [address] [place] [address] PCP - General Family Medicine 01/28/23 Gómez Abebe NP [address] [place] [address] PCP - [facility] 03/19/2409/18 Kell Brown NP [address] [place] [address] [facility] 09/19/24 documented as of this encounter
--- OUTSIDE RECORDS SUMMARY | 2025-04-16 17:15 | XMS_ITS | Encounter Summary ---
Author Organization [facility] Address [address] [place] [address] Care Team Providers Care Bell Valet Name Role Phone Marielena Hester MD Primary Care Provider [phone] Kell Brown DIETARY SERVER Unavailable [phone] Encounter Details Date Type Department Care Team (Latest Contact Info) Description 04/09/2025 Travel Social History Tobacco Use Types Packs/Day Years [...] declined 03/11/2025 How often do you attend jainism or judaism serv ices? Patient declined 03/11/2025 Do you belong to any clubs o r organizations such as jainism groups, unions, fraternal or athletic groups, or [...] Recorded Patient Health Questionnaire-2 Score 0 03/12/2025 [facility] Occupat ional Health - Occupational Stress [...] place to sleep or slept in a assisted (including now)? No 09/06/2023 Housing Stability Vital Sign Answer Marquez e Recorded In the last 12 months, was t here a time when you were not able to pay the mortgage or rent on time? No 03/11/2025 Number of Times Moved in the Last Year Not on fi le 03/11/2025 At any time in the past 12 m [facility], were you homeless or living in a assisted (including now)? No 03/11/2025 Comments No Sex [...] EDT Office Visit [facility] [place] [address] [place] [phone] Jr. Tao Farmer DO [address] [place] [address] documented as of this encounter Visit Diagnoses Not on filedocumented in this encounter Care Teams Bell Valet Relationship Specialty Start Date End Date Marielena Hester MD [address] [place] [address] PCP - General Family Medicine 5/12/23 Kell Brown NP 701 [place] [address] PCP - [facility] 09/19/24 documented as of this encounter
--- OUTSIDE RECORDS SUMMARY | 2025-04-16 17:15 | XMS_ITS | Clinical Summary ---
Author Organization [facility] Address [address] [place] [address] Phone Care Team Providers Care Certified Athletic Trainer Name Role Phone Unavailable Primary Care Provider Unavailabl e Social History Tobacco Use Types Packs/Day Years Used Date Smoking Tobacco: Never Assessed Comments Unknown Sex and Gender Information Value Date Recorded Sex Assigned at Not on file Legal Sex Female 12:10 PM EST Gender Identity Not on file Sexual Orientation Not on file Plan of Treatment Not on file
--- OUTSIDE RECORDS SUMMARY | 2025-04-16 17:15 | XMS_ITS | Encounter Summary ---
Author Organization [facility] Address [address] [place] [address] Care Team Providers Care Machinery Cleaner Name Role Phone Marielena Hester MD Primary Care Provider [phone] Marielena Hester MD Unavailable Gómez Abebe FOOTWEAR PRODUCTION MACHINE OPERATOR Unavailable [phone] Stephanie Kell Blackwell FOOTWEAR PRODUCTION MACHINE OPERATOR Unavailable [phone] Encounter Details Date Type Department Care Team (Late Contact Info) Description 04/27/2023 Abstract [facility] 112 [facility] 110 [place] [id number] Marielena Hester MD 112 [facility] 110 [place] [address] Social History Tobacco Use Types Packs/Day Years Used Date Smoking Tobacco: Never Smokeless Tobacco: Never Alcohol Use Standard Drinks/Week Comments Never 0 (1 standard drink = 0.6 oz pur e alcohol) caffeine yes type: soda Comments Unknown Sex and Gender Information Value Date Recorded Sex Assigned at Not on file Legal Sex Female 6:37 PM EDT Gender Identity Not on file Sexual Orientation Not on file COVID-19 Exposure Response Date Recorded In the last 10 days, have yo u been in contact with someone who was confirmed or suspected to have Coronavirus/COVID-19? No / Unsure 04/08/2023 2:00 PM EDT documented as of this encounter Plan of Treatment Upcoming Encounters Date Type Department Care Team (Late Contact Info) Description 04/08/2026 10:00 AM EDT Office Visit [facility] [address] [place] [address] Jr. Tao Farmer DO [address] [facility] 150 [place] [address] documented as of this encounter Visit Diagnoses Not on filedocumented in this encounter Care Teams Machinery Cleaner Relationship Specialty Start Date End Date Marielena Hester MD [address] [facility] 110 [place] [address] PCP - General Family Medicine 01/28/23 Marielena Hester MD [address] [facility] 110 [place] [address] PCP - [facility] 03/19/23 Gómez Abebe NP [address] [place] [address] PCP - [facility] 03/19/2409/18 Kell Brown NP 701 [place] [address] PCP - [facility] 09/19/24 documented as of this encounter
--- OUTSIDE RECORDS SUMMARY | 2025-04-16 17:15 | XMS_ITS | Encounter Summary ---
Author Organization [facility] Address [address] [place] [address] Care Team Providers Care Pattern Chart Writer Name Role Phone Marielena Hester MD Primary Care Provider [phone] Kell Brown ENTRY LEVEL BUYER Unavailable [phone] Encounter Details Date Type Department Care Team (Late st Contact Info) Description 12/17/2024 Abstract [facility] 112 [facility] 110 [place] [address] Marielena Hester MD 112 [facility] 110 [place] [address] Social History Tobacco Use Types Packs/Day Years [...] 09/06/2023 How often do you attend chur ch or jain services? Patient declined 09/06/2023 Do you belong to any clubs o r organizations such as taoist groups, unions, fraternal or athletic groups, or [...] and heating? Not hard at all 09/06/2023 [facility] Occupat ional Health - Occupational [...] place to sleep or slept in a nursing home (including now)? No 09/06/2023 Comments No Sex [...] Office Visit [facility] [address] [place] [address] Jr. Tao Farmer, [address] [place] [address] documented as of this encounter Visit Diagnoses Not on filedocumented in this encounter Care Teams Pattern Chart Writer Relationship Specialty Start Date End Date Marielena Hester MD [address] [place] [address] PCP - General Family Medicine 01/28/23 Kell Brown NP [address] [place] [address] [facility] 09/[facility]/24 documented as of this encounter
--- OUTSIDE RECORDS SUMMARY | 2025-04-16 17:15 | XMS_ITS | Encounter Summary ---
Author Organization [facility] Address [address] [place] [address] Care Team Providers Care Early Learning Teacher Name Role Phone Marielena Hester MD Primary Care Provider [phone] Marielena Hester MD Unavailable Gómez Abebe BILINGUAL SPEECH LANGUAGE PATHOLOGIST Unavailable [phone] Stephanie Kell Blackwell BILINGUAL SPEECH LANGUAGE PATHOLOGIST Unavailable [phone] Encounter Details Date Type Department Care Team (Late Contact Info) Description 04/14/2023 Abstract [facility] 112 [facility] 110 [place] [address] Marielena Hester MD 112 [facility] 110 [place] [address] Social History Tobacco Use Types Packs/Day Years Used Date Smoking Tobacco: Never Smokeless Tobacco: Never Alcohol Use Standard Drinks/Week Comments Never 0 (1 standard drink = 0.6 oz pur e alcohol) Comments Unknown Sex and Gender Information Value [...] 04/08/2026 10:00 AM EDT Office Visit [facility] [address] [facility] [address] Jr. Tao Farmer DO [address] [facility] 150 [place] [address] documented as of this encounter Visit Diagnoses Not on filedocumented in this encounter Care Teams Early Learning Teacher Relationship Specialty Start Date End Date Marielena Hester MD [address] [facility] 110 [place] [address] PCP - General Family Medicine 01/28/23 Marielena Hester MD [address] [facility] 110 [place] [address] PCP - [facility] 03/19/23 Gómez Abebe NP [address] [place] [address] PCP - [facility] 03/19/2409/18 Kell Brown NP [address] [place] [address] PCP - [facility] 09/19/24 documented as of this encounter
--- OUTSIDE RECORDS SUMMARY | 2025-04-16 17:15 | XMS_ITS | Encounter Summary ---
Author Organization [facility] Address [address] [place] [address] Care Team Providers Care Core Maker Name Role Phone Marielena Hester MD Primary Care Provider [phone] Kell Brown INSTRUMENT ASSEMBLER Unavailable [phone] Reason for Visit * Reason Comments Med Refill Encounter Details Date Type Department Care Team (Late st Contact Info) Description 03/03/2025 Refill [facility] 112 [facility] 110 [place] [address] Marielena Hester MD 112 [facility] 110 [place] [address] Acquired hypothyroidism Social History Tobacco Use Types Packs/Day Years [...] How often do you attend chur or jewish services? Patient declined 09/06/2023 Do you belong to any clubs o r organizations such as confucianism groups, unions, fraternal or athletic groups, or [...] and heating? Not hard at all 09/06/2023 [facility] Occupat ional Health - Occupational Stress [...] place to sleep or slept in a fpc (including now)? No 09/06/2023 Comments No Sex and Gender Information Value Date Recorded Sex Assigned at Not on file Legal Sex Female 6:37 PM EDT Gender Identity Not on file Sexual Orientation Not on file documented as of this encounter Miscellaneous Notes * Telephone Encounter - Jo Ann Mcwilliams LPN - 03/04/2025 8:56 AM EDT Needs appointment documented in this encounter Plan of Treatment Upcoming Encounters Date Type Department Care Team (Late st Contact Info) Description 04/08/2026 10:00 AM EDT Office Visit [facility] [place] [place] [address] Jr. Tao Farmer DO [address] [place] [address] documented as of this encounter Visit Diagnoses Diagnosis Acquired hypothyroidism Unspecified hypothyroidism documented in this encounter Care Teams Core Maker Relationship Specialty Start Date End Date Marielena Hester MD [address] [place] [address] PCP - General Family Medicine 01/28/23 Kell Brown NP [address] [place] [id number] PCP - [facility] 09/19/24 documented as of this encounter
--- OUTSIDE RECORDS SUMMARY | 2025-04-16 17:15 | XMS_ITS | Encounter Summary ---
Author Organization [facility] Address [address] [facility] [place] [address] Care Team Providers Care Fitting Room Supervisor Name Role Phone Marielena Hester MD Primary Care Provider [phone] Gómez Abebe WARP CHANGER Unavailable [phone] Kell Brown WARP CHANGER Unavailable [phone] Encounter Details Date Type Department Care Team (Late st Contact Info) Description 05/15/2024 Abstract [facility] 112 [facility] 110 [place] [address] Marielena Hester MD 112 [facility] 110 [place], [place] [phone] Social History Tobacco Use Types Packs/Day Years [...] How often do you attend chur or catholic services? Patient declined 09/06/2023 Do you belong to any clubs o r organizations such as episcopalian groups, unions, fraternal or athletic groups, or [...] and heating? Not hard at all 09/06/2023 [facility] of Occupat ional Health - Occupational [...] place to sleep or slept in a penitentiary (including now)? No 09/06/2023 Comments No Sex [...] [facility] [address] [place] [address] Jr. Tao Farmer DO [address] [place] [address] documented as of this encounter Visit Diagnoses Not on filedocumented in this encounter Care Teams Fitting Room Supervisor Relationship Specialty Start Date End Date Marielena Hester MD [address] [place] [address] PCP - General Family Medicine 01/28/23 Gómez Abebe NP [address] [place] [address] PCP - [facility] 03/19/2409/18 Kell Brown NP 701 [place] [address] [facility] 09/19/24 documented as of this encounter
--- OUTSIDE RECORDS SUMMARY | 2025-04-16 17:15 | XMS_ITS | Encounter Summary ---
Author Organization [facility] Address [address] [place] [address] Care Team Providers Care Economics Lecturer Name Role Phone Marielena Hester MD Primary Care Provider [phone] Guanako Smith DO Unavailable [phone] Maria M Francis AUTOMATIC FURNACE OPERATOR.CATALYST CONCENTRATION OPERATOR Unavailable [phone] Rebecca Tafoya RN Unavailable [phone] Source Comments In the event this information is protected by the Federal Confidentiality of Alcohol and Drug AbusePatient Records regulations: The Federal rules restrict any use of the information to criminally investigate or prosecute any alcohol or drug abuse patient.[facility] Encounter Details Date Type Department Care Team (Latest Contact Info) Description 10/26/2018 H&P External-NonCCF Provider, External, PA-C Do not enter address information under generic External Provider. Social History Tobacco Use Types Packs/Day Years Used Date Smoking Tobacco: Never Assessed Comments Unknown Sex and Gender Information Value Date Recorded Sex Assigned at Not on file Legal Sex Female 12:25 PM EST Gender Identity Not on file Sexual Orientation Not on file documented as of this encounter Plan of Treatment Not on file documented as of this encounter Visit Diagnoses Not on filedocumented in this encounter Care Teams Economics Lecturer Relationship Specialty Start Date End Date Marielena Hester MD [address] [facility] 110 [place] [address] PCP - General Family Medicine 11/01/18 Guanako Smith DO [address] [facility] 110 [place] [address] Consulting Hematology/Oncology 11/01/18 11/14/19 Maria M Francis APRN.CATALYST CONCENTRATION OPERATOR [address] [place] [place] [address] Nurse Practitioner Hematology/Oncology 01/09/19 Rebecca Tafoya, RN [address] [place] [place] [address] Specialty Quarry Supervisor Dimension Stone Hematology/Oncology 10/11/19 11/14/19 documented as of this encounter
--- OUTSIDE RECORDS SUMMARY | 2025-04-16 17:15 | XMS_ITS ---
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 Past Treatment and Therapy Plans ONCOLOGY REGIMEN Plan Name Start Date Discontinue Date Treatment Medications Discontinue Reason Plan Provider Cycles AC DOSE DENSE - DOXORUBICIN 60 CYCLOPHOSPHAMIDE 600 D1-Q14D THEN WEEKLY PACLITAXEL X12 01/11/20 19 06/11/2020 cyclophosphamide iv piggyback (CYTOXAN)DOXOrubic in (ADRIAMYCIN)fosapr epitant iv piggyback in NaCl 0.9% (EMEND)PACLitaxel iv piggyback (TAXOL)pegfilgrast im (NEULASTA) Guanako Galarza DO 5 of 5 cycles started Lifetime Dose Tracking * Chemical Lifetime Dose Automatic Entry Manual Entr y doxorubicin 241.064 mg/m2 (544.8 mg) 241.064 mg/m2 (5 44.8 mg) 0 mg/m2 (0 mg)
--- OUTSIDE RECORDS SUMMARY | 2025-04-16 17:15 | XMS_ITS | Encounter Summary ---
Author Organization [facility] Address [address] [place] [address] Care Team Providers Care Director Of Counseling Name Role Phone Marielena Hester MD Primary Care Provider [phone] Marielena Hester MD Unavailable Gómez Abebe AFFILIATE MARKETING COORDINATOR Unavailable [phone] Stephanie Kell Blackwell AFFILIATE MARKETING COORDINATOR Unavailable [phone] Encounter Details Date Type Department Care Team (Late Contact Info) Description 04/11/2023 Abstract [facility] 112 [facility] 110 [place] [phone] Marielena Hester MD 112 [facility] 110 [place] [address] Social History Tobacco Use Types Packs/Day Years [...] 04/08/2026 10:00 AM EDT Office Visit [facility] [address] [place] [address] Jr. Tao Farmer DO [address] [facility] 150 [place] [address] documented as of this encounter Visit Diagnoses Not on filedocumented in this encounter Care Teams Director Of Counseling Relationship Specialty Start Date End Date Marielena Hester MD [address] [facility] 110 [place] [address] PCP - General Family Medicine 01/28/23 Marielena Hester MD [address] [facility] 110 [place] [address] PCP - [facility] 03/19/23 Gómez Abebe NP [address] [place] [address] PCP - [facility] 03/19/2409/18 Kell Brown NP [address] [place] [address] PCP - [facility] 09/19/24 documented as of this encounter
--- OUTSIDE RECORDS SUMMARY | 2025-04-16 17:15 | XMS_ITS | Clinical Summary ---
Author Organization [facility] Address [address] [place] [address] Care Team Providers Care Prefitter Doors Name Role Phone Marielena Hester MD Primary Care Provider [phone] Maria M Francis APRN.STOKER MECHANIC Unavailable [phone] Allergies No known active allergies Medications levothyroxine (SYNTHROID) 50 mcg tablet Take 50 mcg by mouth daily before breakfast. Active Cetirizine (ZYRTEC) 10 mg cap Take 10 mg by mouth once daily. Active anastrozole (ARIMIDEX) 1 mg tablet Take 1 mg by mouth once daily. 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, left 11/01/2018 Family History Medical History Relation Comments Diabetes Father Breast Cancer Maternal Grandmother Cancer Maternal Grandmother breast ca w ith mets Relation Status Comments Father Alive Maternal Grandmother Mother Alive Social History Tobacco Use Types Packs/Day Years Used Date Smoking Tobacco: Never Smokeless Tobacco: Never Alcohol Use Standard Drinks/Week Comments No 0 (1 standard drink = 0.6 oz pur e alcohol) PHQ-2 Answer Date Recorded PHQ-2 score 0 10/18/2019 Area Deprivation Index Answer Date Tone rded National Score (1-100), lower number is lower ri sk Not on file 08/28/2020 State Score (1-10), lower number is lower risk N ot on file 08/28/2020 Data from: https://www.neighborhoodatlas.[facility]/. Last address used for calculation Not on file 08/28/2020 Comments No Sex and Gender Information Value Date Recorded Sex Assigned at Not on file Legal Sex Female 12:25 PM EST Gender Identity Not on file Sexual Orientation Not on file Last Filed Vital Signs Vital Sign Reading Time Taken Comments Blood Pressure 127/81 11/08/2019 11:13 AM EST Pulse 80 11/08/2019 11:13 AM EST Temperature 36.3 C (97.3 F) 10/29/2019 11:49 AM EST Respiratory Rate 18 10/29/2019 11:49 AM EST Oxygen Saturation 97% 10/29/2019 11:49 AM EST Inhaled Oxygen Concentration - - Weight 104.3 kg (230 lb) 11/08/2019 11:13 AM EST Height 160 cm (5' 3 ) 11/08/2019 11:13 AM EST Body Mass Index 40.74 11/08/2019 11:13 AM EST Plan of Treatment Health Maintenance Due Date Last Done Comments Anxiety Screening 1993 Depression Screening 1993 HIV Screening 1993 Hepatitis C Screening 1993 DTaP,Tdap,Td Vaccine (1 - Tdap) 1994 Hepatitis B Vaccine (1 of 3 - 19+ 3-dose series) 1994 Mammogram Screening 10/17/2019 10/17/2018, 10/13/2018, 09/26/2018 CT Colonography 2020 Cologuard (FIT-DNA) 2020 Colonoscopy 2020 Colorectal Cancer Screening 2020 Fecal Occult Blood 2020 Lipid Screening 2020 Sigmoidoscopy 2020 Cervical Cancer Screening 06/18/2022 06/18/2019, Diabetes Screening 10/18/2022 10/18/2019, 1 , 06/20/2019, Additional history exists Covid-19 Vaccine ( - 2023-2 5 season) 2024 Influenza Vaccine (#1) 2025 Medical Devices Implanted Type Area House Supervisor Device Identifier Shelf Expiration Date Model / Serial / Lot Mtrx Tiss [id number] Alloderm Thk - [id number] Implanted:Qty : 1 on 05/28/2019 by Vineet Ritchie MD at [facility] Graft Right: Breast [employer] 04/18/2021 [id number] / / [id number] Mtrx Tiss [id number] Alloderm Thk - [id number] Implanted:Qty : 1 on 05/28/2019 by Vineet Ritchie MD at [facility] Graft Left: Breast [employer] 04/18/2021 [id number] / / [id number] Implant Natrelle Inspira Breast Cohesive 800cc Sterile Latex Free - [id number] Implanted:Qty : 1 on 05/28/2019 by Vineet Ritchie MD at [facility] Mammary / Breast Right: Breast [employer] SCX-800 / / Implant Natrelle Inspira Breast Cohesive 800cc Sterile Latex Free - [id number] Implanted:Qty : 1 on 05/28/2019 by Vineet Ritchie MD at [facility] Mammary / Breast Left: Breast [employer] 01/08/2024 SCX-800 / [id number] / Procedures Procedure Name Priority Date/Time Associated Diagnosis Comments BASIC METABOLIC PANEL Routine 10/18/2019 10:14 AM EST Cancer of breast, intraductal, left HPV W/GENOTYPE Routine 06/18/2019 5:11 PM EDT from Last 3 Months or Most Recently Relevant to Health Maintenance Results * BASIC METABOLIC PNL (10/18/2019 10:14 AM EST) Glucose 85 74 - 99 mg/dL 10/18/2019 10:50 AM EST [facility] Comment: The [place] Diabetes Association (ADA) provides guidance for cutoff values for fasting glucose and random glucose. The ADA defines fasting as no caloric intake for at least 8 hours. Fasting plasma glucose results between 100 to 125 mg/dL indicate increased risk for diabetes (prediabetes). Fasting plasma glucose results greater than or equal to 126 mg/dL meet the criteria for diagnosis of diabetes. In the absence of unequivocal hyperglycemia, results should be confirmed by repeat testing. In a patient with classic symptoms of hyperglycemia or hyperglycemic crisis, random plasma glucose results greater than or equal to 200 mg/dL meet the criteria for diagnosis of diabetes. Reference: Standards of Medical Care in Diabetes 2016, [place] Diabetes Association. Diabetes Care. 2016.39(Suppl 1). BUN 14 7 - 21 mg/dL 10/18/2019 10:50 AM EST [facility] Creatinine 0.81 0.58 - 0.96 mg/dL 10/18/2019 10:50 AM EST [facility] Sodium 141 136 - 144 mmol/L 10/18/2019 10:50 AM EST [facility] Potassium 4.3 3.7 - 5.1 mmol/L 10/18/2019 10:50 AM [facility] Chloride 103 97 - 105 mmol/L 10/18/2019 10:50 AM [facility] CO2 28 22 - 30 mmol/L 10/18/2019 10:50 AM [facility] Anion Gap 10 9 - 18 mmol/L 10/18/2019 10:50 AM [facility] Calcium 9.8 8.5 - 10.2 mg/dL 10/18/2019 10:50 AM EST [facility] eGFR- >60 10/18/2019 10:50 AM [facility] eGFR-All Other Races >60 . 10/18/2019 10:50 AM [facility] Comment: eGFR (Estimated GFR) Units of measure: mL/min/1.73 meters squared eGFR is derived from the reexpressed MDRD Study equation using the following parameters: serum creatinine, age, gender and race. The creatinine assay has been calibrated to be traceable to IDMS. An eGFR <60 mL/min/1.73m2 for >3 months is consistent with chronic kidney disease. Refer to KDOQI guidelines for clinical interpretation. In patients with unstable renal function, e.g. those with acute kidney injury, the eGFR may not accurately reflect actual GFR. Blood specimen (specimen) 10/18/2019 10:14 AM EST 10/18/2019 10:16 AM EST us Guanako Smith DO LABORATORY Final Res ult [address] [address] [facility] [address] [place], [place] * HPV W/GENOTYPE (06/18/2019 5:11 PM EDT) HPV Type 16 Negative for HPV DNA high risk type 16 by PCR. 06/20/2019 2:46 PM EDT [facility] HPV Type 18 Negative for HPV DNA high risk type 18 by PCR. 06/20/2019 2:46 PM EDT [facility] HPV High Risk Other Negative for HPV DNA high risk types: 31,33,35,39 ,45,51,52,5 6,58,59,66, 68 by PCR. 06/20/2019 2:46 PM EDT [facility] Comment: This test was developed and its performance characteristics determined by [facility]'s Tony Dyer [facility] Pathology and Laboratory Medicine [place] ([facility]). It has not been cleared or approved by the FDA. -[facility] is regulated under CLIA as qualified to perform high-complexity testing. This test is used for clinical purposes. It should not be regarded as investigational or for research. MISCELLANEOUS SAMPLES / Unknown 06/18/2019 5:11 PM EDT 06/19/2019 2:43 PM EDT us Ramya Hines QUALITY CONTROL SPECIALIST.[facility] LABORATORY Final Re sult [facility] [address] [facility] [facility] [place] [address] [facility] [address] [place] [address] from Last 3 Months or Most Recently Relevant to Health Maintenance Insurance [facility] MEDICAID Advance Directives Documents on File Type Date Recorded Patient Edge Grinder Expl anation Advance Directive(s) 05/14/2019 11:06 AM Care Teams Prefitter Doors Relationship Specialty Start Date End Date Marielena Hester MD [address] [facility] [address] [place] [address] PCP - General Family Medicine 11/01/18 Maria M Francis APRN.STOKER MECHANIC [address] [place] [address] [place] [address] Nurse Practitioner Hematology/Oncology 01/09/19
--- OUTSIDE RECORDS SUMMARY | 2025-04-16 17:15 | XMS_ITS | Clinical Summary ---
Author Organization [facility] Address [address] [place] [address] Care Team Providers Care Postdoctoral Scientist Name Role Phone Unavailable Primary Care Provider Unavailabl e Social History Tobacco Use Types Packs/Day Years Used Date Smoking Tobacco: Never Assessed Comments Unknown Sex and Gender Information Value Date Recorded Sex Assigned at Not on file Legal Sex Female 9:33 PM EDT Gender Identity Not on file Sexual Orientation Not on file Plan of Treatment Not on file
--- OUTSIDE RECORDS SUMMARY | 2025-04-16 17:15 | XMS_ITS | Encounter Summary ---
Author Organization [facility] Address [address] [place] [address] Care Team Providers Care Criminal Judge Name Role Phone Marielena Hester MD Primary Care Provider [phone] Guanako Smith DO Unavailable [phone] Maria M Francis SKULL CHOPPER.WATER QUALITY SPECIALIST Unavailable [phone] Rebecca Tafoya RN Unavailable [phone] Source Comments In the event this information is protected by the Federal Confidentiality of Alcohol and Drug AbusePatient Records regulations: The Federal rules restrict any use of the information to criminally investigate or prosecute any alcohol or drug abuse patient.[facility] Encounter Details Date Type Department Care Team (Late st Contact Info) Description 05/28/2019 Surgical [facility] H[facility]P MAIN [id number] [address] [place] [address] [place] [address] [place] [address] Social History Tobacco Use Types Packs/Day Years Used Date Smoking Tobacco: Never Smokeless Tobacco: Never Alcohol Use Standard Drinks/Week Comments No 0 (1 standard drink = 0.6 oz pur e alcohol) Comments No Sex and Gender Information Value Date Recorded Sex Assigned at Not on file Legal Sex Female 12:25 PM EST Gender Identity Not on file Sexual Orientation Not on file documented as of this encounter Plan of Treatment Not on file documented as of this encounter Visit Diagnoses Not on filedocumented in this encounter Care Teams Criminal Judge Relationship Specialty Start Date End Date Marielena Hester MD [address] [facility] [address] [place] [address] PCP - General Family Medicine 11/01/18 Guanako Smith DO [address] [facility] [address] [place] [address] Consulting Hematology/Oncology 11/01/18 11/14/19 Maria M Francis APRN.WATER QUALITY SPECIALIST [address] [facility] [address] Nurse Practitioner Hematology/Oncology 01/09/19 Rebecca Tafoya, ERLIN [address] [facility] [address] Specialty Accounts Payable Payroll Coordinator Hematology/Oncology 10/11/19 11/14/19 documented as of this encounter
--- OUTSIDE RECORDS SUMMARY | 2025-04-16 17:15 | XMS_ITS | Encounter Summary ---
Author Organization [facility] Address [address] [facility] [place] [address] Care Team Providers Care Showroom Manager Name Role Phone Marielena Hester MD Primary Care Provider [phone] Gómez Abebe COPY CHIEF Unavailable Kell Brown COPY CHIEF Unavailable [phone] Encounter Details Date Type Department Care Team (Late st Contact Info) Description 05/15/2024 [facility] [address] [facility] [address] [place] [address] Marielena Hester MD 112 [facility] [address] [place], [place] [id number] Social History Tobacco Use Types Packs/Day Years [...] How often do you attend chur or oriental orthodox services? Patient declined 09/06/2023 Do you belong to any clubs o r organizations such as voodoo groups, unions, fraternal or athletic groups, or [...] and heating? Not hard at all 09/06/2023 [facility] [place] [facility] - Occupational [...] place to sleep or slept in a half-way (including now)? No 09/06/2023 Comments No Sex [...] [facility] [address] [place] [id number] Jr. Tao Farmer DO [address] [place] [address] documented as of this encounter Visit Diagnoses Not on filedocumented in this encounter Care Teams Showroom Manager Relationship Specialty Start Date End Date Marielena Hester MD [address] [place] [address] PCP - General Family Medicine 01/28/23 Gómez Abebe NP [address] [place] [address] PCP - [facility] 03/19/2409/18 Kell Brown NP [address] [place] [address] [facility] 09/19/24 documented as of this encounter
--- OUTSIDE RECORDS SUMMARY | 2025-04-16 17:16 | XMS_ITS | Clinical Summary ---
Author Organization [facility] tem Address [id number] [address] [place] [address] Care Team Providers Care Glove Parts Cutter Name Role Phone Marielena Hester MD Primary Care Provider [phone] Allergies No known active allergies Medications levothyroxine (SYNTHROID, LEVOTHROID) 50 MCG tablet Take 1 tablet (50 mcg total) by mouth in the morning. Active letrozole (FEMARA) 2.5 mg chemo tablet Take 1 tablet by mouth daily Active calcium carbonate (OS-KENDY) 600 mg (1,500 mg) tablet Take 1 tablet (600 mg total) by mouth in the morning and 1 tablet (600 mg total) in the evening. Take with meals. Active cholecalciferol , vitamin D3, 2,000 units capsule Take 1 capsule (2,000 Units total) by mouth in the morning. Active ibuprofen (MOTRIN) 800 mg tablet Take 1 tablet (800 mg total) by mouth every 6 (six) hours as needed for pain. Active acetaminophen (TYLENOL ARTHRITIS) 650 mg 8 hr tablet Take 1 tablet (650 mg total) by mouth every 8 (eight) hours as needed for pain. Active Active Problems No known active problems Family History Medical History Relation Name Comments Heart disease Father Cancer Mother cervical Breast cancer Neg Hx Relation Name Status Comments Father Alive Mother Alive Social History Tobacco Use Types Packs/Day Years Used Date Smoking Tobacco: Never Smokeless Tobacco: Never Tobacco Cessation:Counseling Given: Not Answered Alcohol Use Standard Drinks/Week Comments Never 0 (1 standard drink = 0.6 oz pur e alcohol) Childcare Answer Date Recorded Childcare Unknown 02/28/2019 Employment Answer Date Recorded Employment Unknown 02/28/2019 Purpose - Life Answer Date Recorded Purpose and direction in life Unknown Comments No Sex and Gender Information Value Date Recorded Sex Assigned at Not on file Legal Sex Female 11:30 AM EDT Gender Identity Not on file Sexual Orientation Not on file Last Filed Vital Signs Vital Sign Reading Time Taken Comments Blood Pressure 120/72 04/26/2023 2:00 PM EDT Pulse 83 04/26/2023 2:00 PM EDT Temperature 36.1 C (97 F) 04/26/2023 1:14 PM EDT Respiratory Rate 10 04/26/2023 2:00 PM EDT Oxygen Saturation 90% 04/26/2023 2:00 PM EDT Inhaled Oxygen Concentration - - Weight 99.8 kg (220 lb) 04/26/2023 8:45 AM EDT Height 162.6 cm (5' 4 ) 04/26/2023 8:45 AM EDT Body Mass Index 37.76 04/26/2023 8:45 AM EDT Plan of Treatment Health Maintenance Due Date Last Done Comments Depression Screening 1987 DTaP,Tdap and Td Vaccines (1 - Tdap) 1994 Adult BMI Screening 04/26/2024 04/26/2023 Tobacco Screening 04/26/2024 04/26/2023 COVID-19 Vaccine ( season) 05/20/202406/2021, 11/29/2020 Influenza Vaccine 05/20/2025 Medical Devices Not on file Insurance [employer] [employer] Care Teams Glove Parts Cutter Relationship Specialty Start Date End Date Marielena Hester MD [place] [address] PCP - General Family Medicine 09/26/18
--- OUTSIDE RECORDS SUMMARY | 2025-04-16 17:16 | XMS_ITS | Encounter Summary ---
Author Organization [facility] Address [address] [place] [address] Care Team Providers Care Catering Cook Name Role Phone Marielena Hester MD Primary Care Provider [phone] Kell Brown SPECIALTY MANUFACTURING SUPERVISOR Unavailable [phone] Encounter Details Date Type Department Care Team (Late st Contact Info) Description 03/19/2025 [facility] [address] [facility] [address] [place] [address] Chioma Reyes MA Social History Tobacco Use Types Packs/Day Years [...] declined 03/11/2025 How often do you attend sabianist or protestant serv ices? Patient declined 03/11/2025 Do you belong to any clubs o r organizations such as sabianist groups, unions, fraZiarco or athletic groups, or school groups? Patient [...] Recorded Patient Health Questionnaire-2 Score 0 03/12/2025 [facility] - [...] any time in the past 12 m [facility], were you homeless or living in a [...] 04/08/2026 10:00 AM EDT Office Visit [facility] [address] [place] [address] Jr. Tao Farmer, [address] [place] [address] documented as of this encounter Visit Diagnoses Not on filedocumented in this encounter Care Teams Catering Cook Relationship Specialty Start Date End Date Marielena Hester MD 112 [facility] [address] [place] [address] PCP - General Family Medicine 01/28/23 Kell Brown NP [address] [place] [address] PCP - [facility] 09/19/24 documented as of this encounter
--- OUTSIDE RECORDS SUMMARY | 2025-04-16 17:16 | XMS_ITS | Clinical Summary ---
Author Organization [facility] Address [address] [place] [address] Care Team Providers Care Senior Ui Ux Developer Name Role Phone Marielena Hester MD Primary Care Provider [phone] Kell Brown WASHHOUSE WORKER Unavailable [phone] Allergies Active Allergy Reactions Criticality Noted Date Comments Amoxicillin Other 04/12/2023 Medications letrozole (Femara) 2.5 MG chemo tablet Take by mouth Daily. Take with or without food. Active calcium 200 MG tablet Calcium Active cholecalciferol (Vitamin D-3) 50 MCG (1999) capsule Vitamin D Active levothyroxine (Synthroid, Levoxyl) 50 MCG tabletIndications: Acquired hypothyroidism Take 1 tablet (50 mcg) by mouth in the morning. Take before meals. 30 tablet 11 03/12/20 25 026 Active mupirocin (Bactroban) 2 % creamIndications:R lindy Apply to affected area 3 times daily x 7 days 30 g 03/09/20 25 025 cephalexin (Keflex) 500 MG capsuleIndications :Rash Take 1 capsule (500 mg) by mouth in the morning and 1 capsule (500 mg) in the evening and 1 capsule (500 mg) before bedtime. Do all this for 10 days. 30 capsule 03/12/20 25 025 methylPREDNISolone (Medrol Dospak) 4 MG tabletsIndications :Rash Follow schedule on package instructions 21 tablet 03/12/20 25 025 Active Problems Problem Noted Date Diagnosed Date Status post right knee replacement 10/02/2023 Primary osteoarthritis of right knee 09/23/2023 Preoperative clearance 09/13/2023 Assessment & Plan (09/13/2023 9:05 AM EST): EKG was Sinus Rhythm UA was negative Urine Culture was normal brady Hgb 14.6 INR 1.0 CMP was normal Patient has No CP Patient is low risk cardiovascular procedure. Patient is CLEARED for Surgery for Right Total Knee Arthroplasty Abnormal mammogram 09/05/2023 Asthmatic bronchitis 09/05/2023 Bilateral buttock pain 09/05/2023 Pain in pelvis 09/05/2023 Breast cancer 09/05/2023 Malignant neoplasm of female breast 09/05/2023 Malignant neoplasm of upper- outer quadrant of left female breast 09/05/2023 Enlarged uterus 09/05/2023 History of bilateral mastectomy 09/05/2023 History of hysterectomy 09/05/2023 Hypertriglyceridemia 09/05/2023 Internal derangement of right knee 09/05/2023 Low HDL (under 40) 09/05/2023 Obesity 09/05/2023 Other chronic pain 09/05/2023 Primary osteoarthritis 09/05/2023 Assessment & Plan (09/13/2023 9:10 AM EST): Cleared for Right Knee Arthroplasty Has had injections Has had Arthroscopy Sinusitis 09/05/2023 Uterine mass 09/05/2023 Hypothyroidism 03/09/2023 Right knee pain 02/23/2023 Obesity, Class III, BMI 40-49.9 (morbid obesity) 05/28/2019 At high risk for breast cancer 04/24/2019 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 Tao Farmer, Status post right knee replacement (Primary Dx); Acute pain of right knee 04/09/2025 8:00 AM EDT Ancillary Procedure [facility] [address] [place] [address] 04/09/2025 Travel 03/19/2025 Results Follow-Up [facility] [address] [facility] [address] [place], [place] [address] Chioma Reyes MA 03/12/2025 8:30 AM EDT Office Visit [facility] [address] [facility] [address] [place], [place] [address] Debbie Duenas NP Rash (Primary Dx); Acquired hypothyroidism ; Low HDL (under 40) ; Hypertriglyceridemia ; Stage II breast cancer, left (HCC) 03/12/2025 Bamboo flowsheet [facility] [address] [facility] [address] [place], [place] [phone] Debbie Duenas NP 03/12/2025 Travel 03/11/2025 Travel 03/09/2025 12:35 PM EDT Office Visit [facility] [address] [place] [phone] Patrica Richards NP Rash (Primary Dx) 03/09/2025 Bamboo flowsheet [facility] [address] [place] [address] Patrica Richards NP 03/09/2025 Travel 03/03/2025 Refill [facility] [address] [facility] [address], [place] [phone] Marielena Hester MD Acquired hypothyroidism from Last 3 Months Family History Medical History Relation Name Comments Diabetes Father Relation Name Status Comments Father Alive Mother Alive Social History Tobacco Use Types Packs/Day Years Used Date Smoking Tobacco: Never Smokeless Tobacco: Never Tobacco Cessation:Counseling Given: Yes Alcohol Use Standard Drinks/Week Comments Never 0 [...] declined 03/11/2025 How often do you attend rastafari or jehovah's witness serv ices? Patient declined 03/11/2025 Do you belong to any clubs o r organizations such as rastafari groups, unions, fraternal or athletic groups, or [...] Recorded Patient Health Questionnaire-2 Score 0 03/12/2025 [facility] - Occupational Stress Questionnaire Answer Date Recorded [...] place to sleep or slept in a skilled nursing (including now)? No 09/06/2023 Housing Stability Vital Sign Answer Marquez e Recorded In the last 12 months, was t here a time when you were not able to pay the mortgage or rent on time? No 03/11/2025 Number of Times Moved in the Last Year Not on fi le 03/11/2025 At any time in the past 12 m [facility], were you homeless or living in a skilled nursing (including now)? No 03/11/2025 Comments No Sex and Gender Information Value Date Recorded Sex Assigned at Not on file Legal Sex Female 6:37 PM EDT Gender Identity Not on file Sexual Orientation Not on file Last Filed Vital Signs Vital Sign Reading Time Taken Comments Blood Pressure 138/88 03/12/2025 8:38 AM EDT Pulse 88 03/12/2025 8:38 AM EDT Temperature 36.3 C (97.4 F) 03/09/2025 12:51 PM EDT Respiratory Rate 17 03/12/2025 8:38 AM EDT Oxygen Saturation 97% 03/12/2025 8:38 AM EDT Inhaled Oxygen Concentration - - Weight 103 kg (228 lb) 03/12/2025 8:38 AM EDT Height 162.6 cm (5' 4 ) 03/12/2025 8:38 AM EDT Body Mass Index 39.14 03/12/2025 8:38 AM EDT Plan of Treatment Upcoming Encounters Date Type Department Care Team (Late st Contact Info) Description 04/08/2026 10:00 AM EDT Office Visit [facility] [address] [place] [phone] Jr. Tao Farmer C, DO [address] [place] [address] Health Maintenance Due Date Last Done Comments CT Colonography 1975 Colonoscopy 1975 Colorectal Cancer Screening 1975 FIT-DNA 1975 FIT 1975 FOBT 1975 Sigmoidoscopy 1975 Influenza Vaccine (#1) 2025 Mammogram Discontinued 04/24/2019, 04/0 10/2018, 10/17/2018, Additional history exists Cervical Cancer Screening Discontinued HPV/Cotest Discontinued 06/18/2019 Pap Smear Discontinued Procedures Procedure Name Priority Date/Time Associated Diagnosis Comments XR KNEE 1-2 VIEWS RIGHT Routine 04/08/2025 9:17 PM EDT Acute pain of right knee LIPID PANEL Routine 03/14/2025 8:29 AM EDT Low HDL (under 40) Hypertriglyceridemia COMPREHENSIVE METABOLIC PANEL Routine 03/14/2025 8:29 AM EDT Acquired hypothyroidism Rash Stage II breast cancer, left (HCC) CBC Routine 03/14/2025 8:29 AM EDT Acquired hypothyroidism Rash Stage II breast cancer, left (HCC) TSH W/REFLEX TO FT4 Routine 03/14/2025 8 :29 AM EDT Acquired hypothyroidism BI MAMMOGRAM DIAGNOSTIC LEFT Routine 10/17/2018 from Last 3 Months or Most Recently Relevant to Health Maintenance Results * XR knee 1 or 2 views right (04/08/2025 9:17 PM EDT) Anatomical Region Laterality Modality Lower Extremities, Knee Right Radiogra phic Imaging Narrative 04/09/2025 11:24 AM EDT Imaging [...] dislocation. Impression: Unremarkable right total knee arthroplasty. Jr. Tao Farmer DO IMG XR PROCEDURES Final Result * TSH W/REFLEX TO FT4 (03/14/2025 8:29 AM EDT) TSH W/REFLEX TO FT4 0.72 mIU/L [facility] Comment: Reference Range > or = 20 Years 0.40-4.50 Ranges First trimester 0.26-2.66 Second trimester 0.55-2.73 Third trimester 0.43-2.91 03/14/2025 8:29 AM EDT 03/14/2025 3:31 PM EDT Narrative Resulting Agency Comment Performing Organization Information Site ID: [id number] Name: [facility] Address: [address] [place] [address], [address] [place] [phone] Director: Narendra Vasquez MD Debbie Duenas WASHHOUSE WORKER LAB BLOOD ORDERABLES Final R esult Performing Organization Address [facility] Co de Phone Number [facility] * (ABNORMAL) CBC (03/14/2025 8:29 AM EDT) WHITE BLOOD CELL COUNT 8.3 3.8 - 10.8 Thousand/u L [facility] RED BLOOD CELL COUNT 5.19(H) 3.80 - 5.10 Million/uL [facility] HEMOGLOBIN 14.4 11.7 - 15.5 g/dL [facility] HEMATOCRIT 45.0 35.0 - 45.0 % [facility] MCV 86.7 80.0 - 100.0 fL [facility] MCH 27.7 27.0 - 33.0 pg [facility] MCHC 32.0 32.0 - 36.0 g/dL [facility] Comment: For adults, a slight decrease in the calculated MCHC value (in the range of 30 to 32 g/dL) is most likely not clinically significant; however, it should be interpreted with caution in correlation with other red cell parameters and the patient's clinical condition. RDW 14.9 11.0 - 15.0 % [facility] PLATELET COUNT 265 140 - 400 Thousand/u L [facility] MPV 9.9 7.5 - 12.5 fL [facility] Blood Venous blood specimen / Unknown 03/14/2025 8:29 AM EDT 03/14/2025 3:31 PM EDT Narrative Resulting Agency Comment Performing Organization Information Site ID: [id number] Name: [facility] Address: [address] [place] [phone] Director: Maryann Oquendo Debbie Duenas WASHHOUSE WORKER LAB BLOOD ORDERABLES Final R esult Performing Organization Address [facility] Co de Phone Number [facility] * (ABNORMAL) Lipid panel (03/14/2025 8:29 AM EDT) CHOLESTEROL, TOTAL 205(H) <200 mg/dL [facility] HDL CHOLESTEROL 59 > OR = 50 mg/dL [facility] TRIGLYCERIDES 111 <150 mg/dL [facility] LDL CHOLESTEROL 124(H) mg/dL (calc) [facility] Comment: Reference range: <100 Desirable range <100 mg/dL for primary prevention; <70 mg/dL for patients with CHD or diabetic patients with > or = 2 CHD risk factors. LDL-C is now calculated using the Claudia calculation, which is a validated novel method providing better accuracy than the Friedewald equation in the estimation of LDL-C. Akash DOWNING et al. RO. 2013;310(19): 8110-5540 (http://education.Safety Hound/faq/ZPE747) CHOL/HDLC RATIO 3.5 <5.0 (calc) [facility] NON HDL CHOLESTEROL 146(H) <130 mg/dL (calc) [facility] Comment: For patients with diabetes plus 1 major ASCVD risk factor, treating to a non-HDL-C goal of <100 mg/dL (LDL-C of <70 mg/dL) is considered a therapeutic option. Blood Venous blood specimen / Unknown 03/14/2025 8:29 AM EDT 03/14/2025 3:31 PM EDT Narrative Resulting Agency Comment Performing Organization Information Site ID: [id number] Name: [facility] Address: [address] [place] [address], [address] [place] [phone] Director: Narendra Vasquez MD Debbie Duenas WASHHOUSE WORKER LAB BLOOD ORDERABLES Final R esult [facility] * (ABNORMAL) Comprehensive metabolic panel (03/14/2025 8:29 AM EDT) Glucose 90 65 - 99 mg/dL [facility] Comment: Fasting reference interval BUN 17 7 - 25 mg/dL [facility] Creatinine 0.67 0.50 - 0.99 mg/dL [facility] EGFR 107 > OR = 60 mL/min/1. 73m2 [facility] BUN/CREATININE RATIO SEE NOTE: 6 - 22 (calc) [facility] Comment: Not Reported: BUN and Creatinine are within reference range. Sodium 140 135 - 146 mmol/L [facility] Potassium, Bld 4.4 3.5 - 5.3 mmol/L [facility] Chloride 105 98 - 110 mmol/L [facility] Carbon Dioxide 27 20 - 32 mmol/L [facility] Calcium 9.1 8.6 - 10.2 mg/dL [facility] PROTEIN, TOTAL 6.9 6.1 - 8.1 g/dL [facility] ALBUMIN 4.2 3.6 - 5.1 g/dL [facility] GLOBULIN 2.7 1.9 - 3.7 g/dL (calc) [facility] ALBUMIN/GLOBULIN RATIO 1.6 1.0 - 2.5 (calc) [facility] BILIRUBIN, TOTAL 0.4 0.2 - 1.2 mg/dL [facility] ALKALINE PHOSPHATASE 72 31 - 125 U/L [facility] AST 9(L) 10 - 35 U/L [facility] ALT 9 6 - 29 U/L [facility] Blood Venous blood specimen / Unknown 03/14/2025 8:29 AM EDT 03/14/2025 3:31 PM EDT Narrative Resulting Agency Comment Performing Organization Information Site ID: [id number] Name: [facility] Address: [address] [place] [phone] Director: Maryann Oquendo us Debbie Duenas WASHHOUSE WORKER LAB BLOOD ORDERABLES Final R esult [facility] * Left diagnostic mammogram (10/17/2018) Anatomical Region Laterality Modality Breast Left Mammography Narrative 10/17/2018 12:00 AM EST PERFORMED AT [facility] LOCATION:[place] [address] RESULTS BELOW ADDENDUMBIRADS 5 - Findings are highly suggestive of malignancy. Biopsy is indicated. OVERALL ASSESSMENT- HIGHLY SUGGESTIVE OF MALIGNANCY. Finalized by Haroldo Tony MD on 10/17/2018 8:12 AM b 5 BIOPSY MAMM DIAGNOSTIC UNILAT LT W CAD WITH TOMOSYNTHESIS US BREAST LT LIMITED HISTORY: Callback from screening mammogram for left breast mass with calcifications COMPARISON: Baseline screening mammogram 09/26/2017 FINDINGS: Spot magnification CC and lateral views of the mass with calcifications in the inner left breast were obtained. There is an irregular spiculated mass with some coarse heterogeneous calcifications in the inner left breast measuring 5.3 x 2.8 x 2.8 cm. Computer-aided detection was used in the interpretation of this examination. Focused high-resolution real-time imaging in the 9:00 position of the left breast demonstrates the presence of a hypoechoic irregular mass with angular and spiculated margins and posterior acoustic shadowing measuring approximately 2.0 x 2.0 x 2.6 cm. This corresponds with mammographic finding. IMPRESSION: Hypoechoic irregular mass with angular and spiculated margins in the 9:00 position of the left breast measuring 2.6 cm. Biopsy is recommended. This would be amenable to ultrasound-guided core needle biopsy. OVERALL ASSESSMENT- HIGHLY SUGGESTIVE OF MALIGNANCY A letter of notification will be sent to the patient regarding the results. Request made to convey findings of study to Dr. Hester on 10/13/2018. Findings also discussed with patient by Dr. Tony on 10/13/2018. Finalized by Haroldo Tony MD on 10/13/2018 1:13 PM b 5 BIOPSY Procedure Note CONVERSION, GENERIC - 03/25/2023 PERFORMED AT [facility] LOCATION:[place] [address] RESULTS BELOW ADDENDUMBIRADS 5 - Findings are highly suggestive of malignancy.Biopsy is indicated. OVERALL ASSESSMENT- HIGHLY SUGGESTIVE OF MALIGNANCY. Finalized by Haroldo Tony MD on 10/17/2018 8:12 AM b 5 BIOPSY MAMM DIAGNOSTIC UNILAT LT W CAD WITH TOMOSYNTHESIS US BREAST LT LIMITED HISTORY: Callback from screening mammogram for left breast mass withcalcifications COMPARISON: Baseline screening mammogram 09/26/2017 FINDINGS: Spot magnification CC and lateral views of the mass withcalcifications in the inner left breast were obtained. There is anirregular spiculated mass with some coarse heterogeneous calcifications inthe inner left breast measuring 5.3 x 2.8 x 2.8 cm. Computer-aided detection was used in the interpretation of thisexamination. Focused high-resolution real-time imaging in the 9:00 position of the leftbreast demonstrates the presence of a hypoechoic irregular mass withangular and spiculated margins and posterior acoustic shadowing measuringapproximately 2.0 x 2.0 x 2.6 cm. This corresponds with mammographicfinding. IMPRESSION: Hypoechoic irregular mass with angular and spiculated margins in the 9:00position of the left breast measuring 2.6 cm. Biopsy is recommended.This would be amenable to ultrasound-guided core needle biopsy. OVERALL ASSESSMENT- HIGHLY SUGGESTIVE OF MALIGNANCY A letter of notification will be sent to the patient regarding theresults. Request made to convey findings of study to Dr. Hester on 10/13/2018.Findings also discussed with patient by Dr. Tony on 10/13/2018. Finalized by Haroldo Tony MD on 10/13/2018 1:13 PM b 5 BIOPSY Marielena Hester MD IMG BI PROCEDURES Final Result from Last 3 Months or Most Recently Relevant to Health Maintenance Insurance [employer] Care Teams Senior Ui Ux Developer Relationship Specialty Start Date End Date Marielena Hester MD [address] [facility] [address] [place] [address] PCP - General Family Medicine 01/28/23 Kell Brown, NIGEL [address] [place] [address] PCP - [facility] 09/19/24
--- OUTSIDE RECORDS SUMMARY | 2025-04-16 17:16 | XMS_ITS | Encounter Summary ---
Author Organization [facility] Address [address] [place] [address] Care Team Providers Care Director Global Medical Affairs Name Role Phone Marielena Hester MD Primary Care Provider [phone] Marielena Hester MD Unavailable Gómez Abebe INPATIENT NURSING AIDE Unavailable [phone] Kell Brown INPATIENT NURSING AIDE Unavailable [phone] Reason for Visit * Reason Comments Med Refill Encounter Details Date Type Department Care Team (Late st Contact Info) Description 12/28/2023 Refill [facility] [address] [place] [address] Jr. Tao Farmer, DO [address] [facility] [address] [place] [address] Acute pain of right knee Social History [...] How often do you attend chur or roman catholic services? Patient declined 09/06/2023 Do you belong to any clubs o r organizations such as worship groups, unions, fraternal or athletic groups, or [...] and heating? Not hard at all 09/06/2023 [facility] - [...] in a assisted (including now)? No 09/06/2023 Comments No Sex and Gender Information Value Date Recorded Sex Assigned at Not on file Legal Sex Female 6:37 PM EDT Gender Identity Not on file Sexual Orientation Not on file documented as of this encounter Plan of Treatment Upcoming Encounters Date Type Department Care Team (Late st Contact Info) Description 04/08/2026 10:00 AM EDT Office Visit [facility] [place] [place] [phone] Jr. Tao Farmer DO [address] [facility] [address] [place] [address] documented as of this encounter Visit Diagnoses Diagnosis Acute pain of right knee documented in this encounter Care Teams Director Global Medical Affairs Relationship Specialty Start Date End Date Marielena Hester MD [address] [facility] [address] [place] [address] PCP - General Family Medicine 01/28/23 Marielena Hester MD [address] [facility] [address] [place] [address] [facility] 03/19/23 Gómez Abebe NP [address] [place] [address] [facility] 03/19/2409/18 Kell Brown NP [address] [place] [address] [facility] 09/19/24 documented as of this encounter
== END 2025-04-16 18:09 | disposition home or self-care (01) ==
PROVIDERS: Emergency Provider Emergency Medicine; PCP Family Medicine
DX: M25.512 Pain in left shoulder (principal); M19.012 Primary osteoarthritis, left shoulder
CPT/HCPCS: 73030; 99283